=== PATIENT | female | born 1930 | race Caucasian/White ===

== ENCOUNTER → 2016-07-08 | Outpatient (CLI) | payer OTHER ==
[~2016-07-08] MED LIST: ASPEC325 PO; HYDC25 PO; HYDR1TAB2 PO; ISOS60TA25 PO; LISI40TA PO; OPTIRAY 320 IV PRN; TAMO20TA47 PO
--- NOTE | 2016-07-08 12:45 | DIAGNOSTIC IMAGING REPORT ---
CT OF THE CHEST WITH IV CONTRAST CLINICAL HISTORY: Metastatic breast carcinoma COMPARISON STUDY: Chest x-ray dated 10/01/2015 TECHNIQUE: Following the IV administration of 81 mL of Optiray-320, CT of the thorax was performed from the thoracic inlet to the lung bases. Images are reviewed in the axial, sagittal, and coronal planes. IV contrast was administered without complication. CT DOSE: 1038.82 mGycm FINDINGS: Thyroid: There is a multinodular thyroid gland with nodules measuring up to 1 cm in diameter. Thoracic aorta: The thoracic aorta is normal in course and caliber, noting standard 3-vessel arch anatomy. No aneurysm or dissection is seen. Pulmonary vasculature: The pulmonary trunk is normal in caliber. There are no central filling defects identified to suggest pulmonary embolus. Note that this examination was not protocoled for the evaluation of pulmonary emboli. HEART: There are coronary artery calcifications present. Lungs and pleural spaces: There are no significant pleural effusions. Evaluation the lung parenchyma is mildly limited due to respiratory motion artifact. There is no focal pulmonary consolidation. There is a 2 mm right middle lobe pulmonary nodule as visualized in image #153/[id number]. Mediastinum: There is no pathologic adenopathy by size criteria. Violeta: There is no evidence of pathologic adenopathy. Axilla: There is no evidence of pathologic adenopathy. Upper abdomen: There is a small hiatal hernia. The gallbladder is filled with calculi. There is a 39 mm left renal cyst. Skeletal structures: There is diffuse skeletal metastasis. IMPRESSION: 1. Diffuse skeletal metastases 2. No evidence of pathologic adenopathy 3. 2 mm right middle lobe pulmonary nodule 4. Cholelithiasis. 5. Multinodular thyroid gland. Electronically signed by: Immanuel Marroquin M.D. 07/08/2016 12:44 PM Dictated Date/Time: 07/08/2016 12:40 PM
--- NOTE | 2016-07-08 12:47 | DIAGNOSTIC IMAGING REPORT ---
CT SCAN OF THE ABDOMEN AND PELVIS WITH IV CONTRAST CLINICAL HISTORY: Metastatic breast cancer. COMPARISON STUDY: Abdominal CT dated 12/24/2011. Nuclear bone scan dated 10/01/2015. TECHNIQUE: Following the IV administration of 81 cc of Optiray 320, CT scan of the abdomen and pelvis is performed from the lung bases to the proximal femora. Images are reviewed in the axial, sagittal, and coronal planes. IV contrast was administered without complication. Automated dose control exposure was utilized. FINDINGS: Lung bases: The heart is enlarged and without pericardial effusion. The coronary arteries are densely calcified. Chronic changes are present at both lung bases. There is no airspace consolidation typical for pneumonia or pleural effusion. There is a moderate hiatal hernia. There is evidence of bilateral mastectomy. Liver: The contrast-enhanced liver is normal in size, contour, and attenuation. There is no intrahepatic biliary ductal dilatation. The hepatic veins and portal veins are patent. Gallbladder: The gallbladder mildly distended and filled with gallstones. There is no CT evidence of acute cholecystitis.. Spleen: Normal in size and attenuation. Pancreas: The pancreas is atrophic. There are at least 4 ovoid water density lesions scattered throughout the pancreas measuring up to 1.6 cm. [employer] lesions are seen in the pancreatic body on images #113 and #119 and in the pericolic head on image #174. 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 Adrenal glands: Unremarkable. Kidneys: The contrast enhanced kidneys demonstrate cortical atrophy and are without hydronephrosis. The kidneys enhance symmetrically. Bilateral cortical and parapelvic cysts measure up to 5.2 cm. Additional subcentimeter cortical hypodensities also likely represent cysts but are too small for definitive characterization. Abdominal vasculature: The abdominal aorta is normal in course and caliber noting mild atherosclerotic calcification. Bowel: The small bowel and colon are normal in course and caliber. There is moderate diverticulosis of left colon without CT evidence of acute diverticulitis. Moderate colonic fecal retention is observed. The appendix is not identified and reported surgically absent. Peritoneum: There is no intraperitoneal free air or abdominal ascites. Lymphadenopathy: None. Pelvic viscera: The bladder is normal as visualized. The uterus is surgically absent. No adnexal lesion is seen. Skeletal structures: The skeletal structures are osteopenic. There are changes of diffuse osteoblastic metastatic disease. This has clearly progressed from the [address] scan, and has not appreciably changed from the 10/01/2015 bone scan noting differences in modality. There is no evidence of insufficiency fracture. IMPRESSION: 1. 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 This has clearly progressed from the [address] scan, but has not appreciably changed when correlated with the 10/01/2015 nuclear bone scan although direct comparison is difficult due to differences in modality. 2. There is no evidence of visceral metastatic disease in the abdomen or pelvis. 3. Cholelithiasis without CT evidence of acute cholecystitis. 4. Moderate diverticulosis of the left colon without CT evidence of acute diverticulitis. 5. Cardiomegaly and hiatal hernia. 6. Additional changes as above. Electronically signed by: Ovi Traore M.D. 07/08/2016 12:46 PM Dictated Date/Time: 07/08/2016 12:37 PM
--- NOTE | 2016-07-08 14:24 | DIAGNOSTIC IMAGING REPORT ---
BONE SCAN WHOLE BODY CLINICAL HISTORY: Metastatic disease breast carcinoma COMPARISON STUDY: 09/29/2015 FINDINGS: The patient was injected with 26.7 mCi of technetium 99m MDP. Three-hour delayed whole body images were acquired. There are multiple foci of abnormal increased uptake involving the calvarium manubrium sternum multiple ribs as well as several vertebral bodies. There are also subtle foci of increased uptake within the distal left femur and proximal right tibia. The overall intensity of the foci is slightly diminished a finding which may represent treatment response. No new lesions are visualized. IMPRESSION: Multiple foci of abnormal increased activity consistent with metastatic disease. The overall intensity of the foci is slightly diminished, a finding which may indicate a treatment response Electronically signed by: Immanuel Marroquin M.D. 07/08/2016 2:22 PM Dictated Date/Time: 07/08/2016 2:16 PM
== END | disposition home or self-care (01) ==
LOC: C.CTS 09:24
PROVIDERS: ATTEND Internal Medicine Hematology & Oncology
DX: C50.911 Malignant neoplasm of unspecified site of right female breast (principal); R91.1 Solitary pulmonary nodule; K80.20 Calculus of gallbladder without cholecystitis without obstruction; E04.2 Nontoxic multinodular goiter

== ENCOUNTER → 2016-10-25 | Outpatient (CLI) | payer OTHER ==
[~2016-10-25] MED LIST changes: -OPTIRAY 320 IV PRN
[2016-10-26 06:54] LABS: ESTIMATED AVERAGE GLUCOSE 120 mg/dl; HA1C FLAG Normal (Normal)
== END | disposition home or self-care (01) ==
LOC: C.LABBFT 12:15
PROVIDERS: ATTEND Internal Medicine
DX: E11.9 Type 2 diabetes mellitus without complications (principal); C50.919 Malignant neoplasm of unspecified site of unspecified female breast